=== PATIENT | female | born 1975 | race Two or more races ===

== ENCOUNTER → 2017-09-07 14:02 | Outpatient (CLI) | payer OTHER | END | disposition home or self-care (01) | LOC: EKG 14:02 | DX: I10 Essential (primary) hypertension (principal) ==

== ENCOUNTER 2017-09-11 06:57 | Day surgery (SDC) | payer OTHER | END 2017-09-11 16:00 | disposition home or self-care (01) | LOC: CIR.AMB 06:57 | DX: D17.1 Benign lipomatous neoplasm of skin and subcutaneous tissue of trunk (principal) ==